=== PATIENT | female | born 1945 | race Caucasian/White ===

== ENCOUNTER 2019-09-28 17:48 | Inpatient (IN) ==
[2019-09-28] MEDS ORDERED: ZOFRAN IV PRN (18:14)
[2019-09-28] MEDS ORDERED: TYLENOL PO PRN ×2 (18:14→18:20)
[2019-09-28] MEDS ORDERED: LOVENOX SUBQ SCH (18:15)
[2019-09-28 18:49] LABS: ALLEN TEST YES; BE 1.8 mmoll (-3.0-3.0); BLOOD TYPE ARTERIAL; HCO3-(ACT) 26.3 mmoll (20.0-26.0); METHB 0.6 % (0.0-1.5); O2(CT) 19.1 mL/dL (15.0-23.0); O2HB 96.3 % (95.0-99.0); PCO2(98.6) 37 mmHg (35-45); PO2(98.6) 110 mmHg (60-100); SAMPLE BLOOD; SAO2 97.5 % (95.0-100.0); pH(98.6) 7.45 (7.35-7.45)
[2019-09-28 18:53] LABS: MODALITY CANNULA
[2019-09-28 19:01] LABS: BASO# 0.01 X1000 (0.0-0.2); BASO% 0.2 % (0.0-0.8); HEMATOCRIT 41.9 % (37.0-47.0); HEMOGLOBIN 13.5 g/dL (12.0-16.0); IMM GRAN# 0.02 X1000 (0.0-0.04); IMM GRAN% 0.3 % (0.0-0.5); LYMPH% 28.6 % (20.5-51.1); MCHC 32.2 g/dL (33-37); MCV 86.7 FL (81-99); MONO# 0.77 X1000 (0.11-0.59); MONO% 12.2 % (1.7-9.3); MPV 11.5 FL (7.4-10.4); NEUT# 3.69 X1000 (1.4-6.5); NEUT% 58.7 % (42.2-75.2); PLT 148 X1000 (130-400); RBC 4.83 XMIL (4.2-5.4); RDW 14.9 % (11.5-14.5); WBC 6.29 X1000 (4.8-10.8)
[2019-09-28 19:22] LABS: AGAP 13; ALB/GLOB RATIO 1.3; ALBUMIN 4.3 g/dL (3.5-5.0); ALKALINE PHOSPHATASE 102 U/L (32-104); BUN 15 mg/dL (8-22); CALCIUM 9.1 mg/dL (8.8-10.2); CHLORIDE 104 mmol/L (98-107); CK PROFILE 117 U/L (24-173); COSMO 286; CREATININE 0.7 mg/dL (0.5-0.9); ESTIMATED GFR > 60; GLUCOSE 105 mg/dL (70-104); GOT 23 U/L (10-30); GPT 16 U/L (10-36); POTASSIUM 3.6 mmol/L (3.5-5.1); SODIUM 143 mmol/L (136-145); TCO2 26 mmol/L (25-35); TOTAL BILIRUBIN 0.24 mg/dL (0.20-1.00); TOTAL PROTEIN 7.7 g/dL (6.3-8.3)
[2019-09-28] MEDS: ATROVENT NEB INH SCH ×2 (19:40→23:51)
[2019-09-28] MEDS: ALBUTEROL NEB INH SCH ×2 (19:40→23:51)
[2019-09-28 20:12] LABS: URINE SOURCE CLEAN CATCH
[2019-09-28] MEDS: NS 1,000 ML IV SCH (20:12)
[2019-09-28 20:14] LABS: BILIRUBIN URINE NEGATIVE (NEGATIVE); BLOOD URINE NEGATIVE (NEGATIVE); COLOR YELLOW; GLUCOSE URINE NEGATIVE (NEGATIVE); KETONE URINE NEGATIVE (NEGATIVE); LEUKOCYTES URINE NEGATIVE (NEGATIVE); NITRITE URINE NEGATIVE (NEGATIVE); PROTEIN URINE NEGATIVE (NEGATIVE); SP GRAVITY URINE 1.015; TURBIDITY URINE CLEAR (CLEAR); UR EPITHELIAL CELLS <10 /HPF (<10); URINE BACTERIA NEGATIVE /HPF; URINE RBC <10 /HPF (<10); URINE WBC <10 /HPF (<10); UROBILINOGEN URINE NORMAL (NORMAL)
[2019-09-28] MEDS: PRINIVIL PO SCH ×2 (21:00→21:14)
[2019-09-28] MEDS ORDERED: NEURONTIN PO SCH (21:00)
[2019-09-28] MEDS ORDERED: LIPITOR PO SCH (21:00)
[2019-09-29] MEDS: ALBUTEROL NEB INH SCH ×3 (03:30→10:57)
[2019-09-29] MEDS: ATROVENT NEB INH SCH ×3 (03:30→10:57)
--- NOTE | 2019-09-29 04:45 | HISTORY AND PHYSICAL ---
CHIEF COMPLAINT: Profound shortness of breath. PRIMARY CARE PHYSICIAN: Dr. Rangel Handy. HISTORY OF PRESENT ILLNESS: A 74-year-old white female with a complicated past medical history presents for evaluation of above-mentioned symptoms. Pertinent history of present illness began on 07/31/2019. At that time, patient underwent a right breast biopsy by Dr. Martinez. 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 Soon with this diagnosis, patient was referred to Dr. Perkins and Dr. Sweeney. Soon after biopsy, patient experienced increasing shortness of breath with exertion and associated chest discomfort. She denied associated nausea, vomiting, diaphoresis, or radiating pain. Patient was seen in clinic on 08/22/2019. At that time, concern for cardiac pathology was highest on the differential. The patient referred for echocardiogram which revealed mild tricuspid regurgitation, mild left atrial enlargement, mild mitral regurgitation and an ejection fraction of 65% with normal wall motion. CT angiogram of the chest at that time revealed no pulmonary emboli. Cardiomegaly with pulmonary edema was identified. Stress testing was pursued which, per report, returned negative. The patient continued her normal activities, but on Wednesday, her symptoms significantly progressed. She developed nausea, primarily occurring in the morning. Energy level has decreased and shortness of breath has increased. The patient was seen by Dr. Sweeney. While there, resting oxygen saturation was noted to be 88%. She was referred to my clinic. Upon arrival at my clinic, oxygen saturation was 90%, however with ambulation dropped to 75%. She has had a modest cough, but no congestion. She denies fevers, chills, or wheezing. Because of her progressive illness, patient will be admitted to the hospital for full evaluation and management. PAST MEDICAL HISTORY: 1. History of multiple actinic keratoses. 2. Allergic rhinitis. 3. Anxiety. 4. History of bilateral silicone implants in 1984. 5. History of bilateral cataract removal. 6. Cholelithiasis status post laparoscopic cholecystectomy in 1990. 7. Depression/anxiety. 8. Dizziness. 9. Hypertension. 10. Hypertriglyceridemia. 11. History of herpes zoster affecting her left flank with associated post herpetic neuralgia. 12. Hyperlipidemia. 13. Hypothyroidism. 14. Impaired fasting glucose. 15. Low back pain status post surgical intervention in 1988. 16. Mild cognitive impairment. 17. History of closed head injury in 1993 with no residual deficits. 18. History of nephrolithiasis. 19. Obstructive sleep apnea treated with CPAP therapy. 20. Multinodular goiter. 21. History of melanoma to the right shoulder followed routinely by Dr. Plata. 22. History of a lacunar infarct per CT scan in 2002. Subsequent MRI evaluation revealed no evidence of acute disease. 23. Urinary incontinence. 24. Chronic hoarseness. CURRENT MEDICATIONS: 1. Atorvastatin 20 mg at bedtime. 2. B complex vitamin daily. 3. Claritin 10 mg daily. 4. Coenzyme Q-10 200 mg daily. 5. Gabapentin 600 mg 1/2 tablet in the morning, 1/2 tablet at noon and 1/2 tablet late afternoon and 1 tablet at bedtime. 6. Hydrochlorothiazide 25 mg daily. 7. Potassium chloride 8 mEq daily. 8. Levothyroxine 125 mcg daily. 9. Lisinopril 20 mg at bedtime. 10. Omeprazole 40 mg daily. 11. Zofran as needed. ALLERGIES: Patient states she is allergic to Coreg which causes hypotension, levofloxacin which causes arthralgias, morphine which causes hypertension/syncope, sulfa and Zocor which causes myalgias. SOCIAL HISTORY: Patient denies tobacco, alcohol or illicit drug use. 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 She enjoys reading. She exercises by walking routinely. FAMILY HISTORY: Patient's father passed at age 82 secondary to complications of a hepatoma. Patient's mother passed at age 79 secondary to complications of heart disease. One brother passed at age 53 secondary to complications of lung cancer. Another brother passed at age 58 secondary to complications of esophageal cancer. REVIEW OF SYSTEMS: A 12 point review of systems was performed. Pertinent positives and negatives are noted in history present illness. PHYSICAL EXAMINATION: VITAL SIGNS: Temperature 98.4 degrees, heart rate 74, respirations 20, blood pressure 132/76. GENERAL: Well nourished, well developed, in no acute distress. HEENT: Normocephalic, atraumatic. Pupils equal, round, react to light. Extraocular muscles intact. Sclerae anicteric. [place] conjunctivae. Oral and nasopharynx clear without exudate. NECK: Supple. No lymphadenopathy. No thyromegaly. No bruits auscultated. CARDIOVASCULAR: Regular rate and rhythm. No significant murmurs, rubs, or gallops. PULMONARY: Clear to auscultation bilaterally. ABDOMEN: Soft, nontender, nondistended. Positive bowel sounds. EXTREMITIES: Moves all extremities well. No significant clubbing, cyanosis, or edema. DERMATOLOGIC: Evaluation reveals no evidence of rash. LABORATORY DATA: White blood cell count 6.29, hemoglobin 13.5, hematocrit 41.9 platelet count 148,000. D-dimer 0.38. pH 7.45, pCO2 37, PO2 110, bicarb 26. Sodium 143, potassium 3.6, chloride 104, bicarb 26, BUN 15, creatinine 0.7, glucose 105, calcium 9.1, total bilirubin 0.24, total protein 7.7, albumin 4.3, alkaline phosphatase 102, AST 23 ALT 16. CK level 117. Troponin less than 0.010. CRP 6.010. ASSESSMENT AND PLAN: A 74-year-old white female with a very complicated past medical history presents for evaluation of profound shortness of breath. Thus far, the degree of hypoxia is disproportionate to her clinical and radiologic findings. The patient will be admitted to the hospital for full evaluation and management of this condition. 1. Admit to General Medicine. 2. Shortness of breath/hypoxia - This is quite curious. Patient has, which she describes, as an acute onset of her symptoms. Full evaluation thus far has returned negative including echocardiogram, CT angiogram, and stress testing. We will place patient on oxygen per protocol. We will repeat a CT scan of the chest as it has been approximately 1 month. We will plan to consult Dr. Flores in the morning. Depending on patient's progress, we will consider pulmonary function testing. We will remain aware that, in the setting of new diagnosis of breast cancer, perineoplastic phenomenon could be present. We will also remain aware that she has recently begun XRT, thus this may be exacerbating an underlying condition. 3. Profound weakness - I suspect this is largely secondary to underlying hypoxia. We will also remain aware that a new diagnosis of breast cancer and XRT is likely contributing. We will continue to follow this closely. 4. Anxiety - Unfortunately, patient's symptoms have increased considerably over the course of the last several days. We will plan to resume Pristiq therapy tomorrow. 5. Hypertension - We will continue patient on her home regimen. 6. Hyperlipidemia/hypertriglyceridemia - Patient is treated with atorvastatin therapy. We will continue this. 7. Hypothyroidism - We will continue patient on replacement. 8. Post herpetic neuralgia - We will continue patient on gabapentin therapy. 9. Fluid, electrolytes, nutrition. We will monitor electrolytes. Normal saline at 50 mL an hour. Regular diet. 10. Prophylaxis. Patient will be placed on subcu Lovenox. cc: Rangel Handy MD
[2019-09-29] MEDS ORDERED: PRILOSEC PO SCH (07:00)
[2019-09-29] MEDS ORDERED: SYNTHROID PO SCH (07:00)
--- NOTE | 2019-09-29 07:07 | Diag Imaging Result Doc PS360 ---
EXAM: CT THORAX W/CONTRAST 09/28/2019 HISTORY: hypoxia TECHNIQUE: This exam was performed using automated exposure control, adjustment of mA or kV according to patient size, and/or use of iterative reconstruction technique. COMMENT: There are no filling defects in the pulmonary arteries. The aorta is normal in caliber and there is no evidence of dissection. There are some calcifications in the left coronary artery. Some apical pleural thickening is present which was also present on 08/25/2019. The lungs are better expanded than on the previous study. There are no focal opacities to suggest pneumonia. There are no abnormal fluid collections. The liver is slightly hypodense suggesting fatty change. There are enlarged nodes in the celiac region which were partially visible on the previous study. The regional skeleton is intact. IMPRESSION: No evidence of acute disease. Electronically signed by Jaquan Hayden 09/29/2019 7:05 AM
[2019-09-29] MEDS ORDERED: CLARITIN PO SCH (09:00)
[2019-09-29] MEDS ORDERED: COENZYME Q10 PO SCH (09:00)
[2019-09-29] MEDS ORDERED: HYDROCHLOROTHIAZIDE PO SCH (09:00)
[2019-09-29] MEDS ORDERED: PRISTIQ ER PO SCH (09:00)
[2019-09-29] MEDS ORDERED: VICON-C PO SCH (09:00)
[2019-09-29] MEDS ORDERED: MICRO-K PO SCH (09:00)
[2019-09-29] MEDS: NEURONTIN PO SCH ×2 (10:32→12:50)
[2019-09-29 12:30] VITALS: BP 118/68
--- NOTE | 2019-09-29 14:38 | Diag Imaging Result Doc PS360 ---
EXAM: CHEST-2 VIEWS 09/29/2019 HISTORY: hypoxemia TECHNIQUE: PA and lateral chest COMMENT: The heart size and pulmonary vascularity are within normal limits. The lungs are clear. Compared to 04/19/2017 there has been no significant change in the appearance of the chest. IMPRESSION: Stable chest. Electronically signed by Jaquan Hayden 09/29/2019 2:35 PM
--- NOTE | 2019-09-29 14:38 | Diag Imaging Result Doc PS360 ---
EXAM: KUB ABDOMEN 09/29/2019 HISTORY: abdominal distention TECHNIQUE: KUB COMMENT: There is stool in the rectum and ascending colon as well as the transverse colon. The small bowel is not distended. The stomach is not distended. There has been cholecystectomy. There is no evidence of organomegaly or mass. IMPRESSION: Mild constipation. Electronically signed by Jaquan Hayden 09/29/2019 2:36 PM
[2019-09-29] MEDS ORDERED: NEURONTIN PO SCH (16:00)
[2019-09-29] MEDS: NS 1,000 ML IV SCH (16:30)
--- NOTE | 2019-09-30 00:43 | PULMONOLOGY CONSULTATION ---
DATE: 09/29/2019 HISTORY OF PRESENT ILLNESS: Ms Alcaraz is a 74-year-old white female who was admitted to the hospital with shortness of breath and hypoxemia on oximetry. The patient was previously walking 3 miles a day 5 days per week until her diagnosis of breast cancer. The patient underwent a lumpectomy from the right breast on 07/31/2019 which revealed a ductal carcinoma in situ. Margins were negative. She was referred to Dr. Sweeney for radiation therapy and has completed 4 treatments. The patient stopped exercising immediately after her surgery due to the pain associated with surgery. She has not yet restarted that exercise habit. She has developed shortness of breath, fatigue and chest discomfort. She was evaluated by Cardiology and stress test was negative by report. Echocardiogram revealed no major pathology. The patient was at the oncologist's when she reported feeling shortness of breath and not feeling well. Her oxygen saturation was 88% and it dropped to 75% upon evaluation by Dr. Rangel Handy. She was admitted to the hospital and a CT pulmonary angiogram was performed which revealed no significant pulmonary infiltrates and no evidence of pulmonary emboli. An arterial blood gas was performed which revealed a pH of 7.45, pCO2 of 37, PO2 of 110. PAST MEDICAL HISTORY: 1. Possible allergic rhinitis. The patient takes daily Claritin but reports she does not have sinus symptoms. 2. Possible reflux disease. She denies reflux, but does have significant changes in her voice. 3. Breast cancer as per above. 4. Depression/anxiety disorder. 5. Hypertension. 6. Raynaud phenomenon for 20 years. 7. Dyslipidemia. 8. Episode of shingles with postherpetic neuralgia. 9. History of back pain with back surgery. 10. Obstructive sleep apnea, on CPAP. 11. Remote history of melanoma several years ago, followed by Dr. Tee. SOCIAL HISTORY: Patient denies history of tobacco or alcohol use. FAMILY HISTORY: Notable for lung cancer, esophageal cancer, heart disease and hepatocellular carcinoma. REVIEW OF SYSTEMS: As noted in the HPI. PHYSICAL EXAMINATION: General: Reveals an obese white female with a BMI of 33. Vital Signs: She has been afebrile during this hospitalization. Her oxygen saturation has remained 96 or above during this hospitalization on 1 L per nasal cannula. HEENT: Pupils are equal and reactive. Oropharynx appears clear. Neck: Supple. Chest: Reveals minimal crackles in the lung bases. Cardiac: S1-S2. Abdomen: Obese and soft. Extremities: Without edema. Neurologic: Cranial nerves 2 to 12 are grossly intact. ADDITIONAL INFORMATION: I initially attempted to walk the patient in the hallway with an oximeter to see if her oxygen saturation would decline. However, she has significant Raynaud phenomenon and demonstrates cyanosis in both hands which she reports is a chronic phenomenon. A forehead oximeter was obtained from the Respiratory Therapy department and patient was ambulated the length of the unit 4 times. Her oxygen saturation remained 96 to 100 percent. IMPRESSION: A 74-year-old with: 1. Dyspnea on exertion. 2. Abnormal oximetry. 3. Raynaud phenomenon. 4. Obesity. DISCUSSION: A 74-year-old with problems outlined above. The patient has Raynaud phenomenon, which will make her oximetry on her hand erroneous. She does not have significant oxygen desaturation when her oximetry is applied to her forehead. The patient does have significant dyspnea on exertion although did not demonstrate significant increased work of breathing while ambulating in the hallway. The patient reports she was walking last month, but according to the pathology, which her surgery was in July, she has not been exercising for over 2 months. I suspect that she has developed significant deconditioning and she believes that she may have gained weight around the holidays. I would recommend that she be re-initiated on an exercise regimen and to focus on nutrition and weight loss. This may be difficult because she currently is going through the stress of radiation therapy. I would like to reevaluate her in 2 weeks. I explained to her that sometimes dyspnea can be difficult to evaluate and she has many things going on at this time. PLAN: 1. Encourage patient to restart her exercise program. 2. Cautioned patient about the erroneous nature of oximetry given her long history of Raynaud's. 3. Follow up in my clinic in 2 weeks. cc: MD Rangel Casey MD MTDD
--- NOTE | 2019-09-30 17:28 | DISCHARGE SUMMARY ---
ADMISSION DATE: 09/28/2019 DISCHARGE DATE: 09/29/2019 ADMISSION DIAGNOSIS: Profound fatigue. DISCHARGE DIAGNOSES: 1. Shortness of breath/hypoxia. 2. Profound weakness. 3. Anxiety. 4. Hypertension, present on arrival. 5. Hyperlipidemia/hypertriglyceridemia, present on arrival. 6. Hypothyroidism, present on arrival. 7. Post herpetic neuralgia, present on arrival. CONSULTATIONS: Dr. Flores with Pulmonology was consulted for further evaluation and management of unexplained hypoxia. PROCEDURES: A CT scan of the chest was performed on 09/28/2019 which revealed no evidence of acute disease. HISTORY AND PHYSICAL EXAMINATION: See admit note. PHYSICAL EXAMINATION PRIOR TO DISCHARGE: Temperature 97.6 degrees, heart rate 82, respirations 20, blood pressure is 118/68, O2 saturation 97% on 1 L of oxygen. General: Well nourished, well developed, no acute distress. Cardiovascular: Regular rate and rhythm. No significant murmurs, rubs, or gallops. Pulmonary: Clear to auscultation bilaterally. Abdomen: Soft, nontender, nondistended. Positive bowel sounds. Extremities: Moves all extremities well. No significant clubbing, cyanosis, or edema. Dermatologic: Evaluation reveals no evidence of rash. LABORATORY DATA: None. HOSPITAL COURSE: Patient was admitted as per history and physical examination. Hospital course per condition is as follows. 1. Shortness of breath/hypoxia-as noted in history and physical examination, patient has developed fairly rapid onset shortness of breath. Approximately 2 months ago, patient was able to walk in the mall for exercise. Currently, she is unable to walk any distance without significant shortness of breath. While in my office, patient was noted to have a significant desaturation with ambulation. The patient was admitted to the hospital for full evaluation and management. CT scan of the chest revealed no evidence of acute abnormality. Laboratory evaluation revealed no evidence of acute abnormality. In the recent past, patient had a full cardiac evaluation as well as a CT angiogram without significant disease. At this point, this appears to be a primary pulmonary process. Dr. Flores has been consulted. I anticipate discharge home this evening with oxygen therapy. Further pulmonary evaluation will be necessary as an outpatient. 2. Profound weakness-with supplemental oxygen, patient has achieved improvement in her overall condition. Once able, we will encourage routine exercise as she previously was performing. 3. Anxiety-patient has developed increasing anxiety associated with her shortness of breath. We will initiate Lexapro therapy as an outpatient. We will titrate up as necessary. 4. Left breast cancer-this is a recent diagnosis. She is currently being treated with XRT. While XRT could be playing a role in her shortness of breath, the initial shortness of breath began prior to initiating therapy. We will remain aware. We will follow along with Dr. Perkins and Dr. Sweeney. 5. Hypertension-patient was maintained on home medications with reasonable response. 6. Hyperlipidemia/hypertriglyceridemia-patient was maintained on atorvastatin therapy. 7. Hypothyroidism-we will continue patient on replacement. 8. Post herpetic neuralgia-patient was continued on gabapentin while hospitalized. Symptoms are reasonably controlled. DISCHARGE CONDITION: Good. DISPOSITION: Discharge to home. MEDICATIONS: 1. Acetaminophen 650 mg every 6 hours as needed. 2. Atorvastatin 20 mg at bedtime. 3. Gabapentin 300 mg at 9 a.m., 300 mg at noon, 300 mg at 1400 and 600 mg at bedtime. 4. Hydrochlorothiazide 25 mg daily. 5. Levothyroxine 125 mcg daily. 6. Lisinopril 20 mg at bedtime. 7. Loratadine 10 mg daily. 8. Omeprazole 40 mg daily. 9. Potassium chloride 8 mEq daily. 10. Coenzyme Q10 200 mg daily. 11. Vitamin B complex daily. 12. Oxygen 2 L. FOLLOWUP: Patient is to follow up with me next week. Patient is to follow up with Dr. Flores as arranged. cc: Rangel Handy MD
== END 2019-09-29 17:24 | disposition home or self-care (01) | DRG 206 ==
LOC: DIRADM 17:48 → EDIPHOLD 18:21 → 1N 20:32
PROVIDERS: ADMIT Internal Medicine; ATTEND Internal Medicine